=== PATIENT | female | born 1975 | race Hispanic/Latino ===

== ENCOUNTER → 2017-04-09 | Outpatient (CLI) | payer SELFPAY ==
[~2017-04-09] MED LIST: CALC-866 PO; DOXY100T19 PO; FOLI1TAB15 PO; IRON1CAP30 PO; LIOT5TAB8 PO; LISI1TAB9 PO; MEDR10TA PO; METR500T4 PO; OMEG1CAP83 PO; ZONI25CA PO; [UNRECOGNIZED DRUG - CODE] PO
== END | disposition home or self-care (01) ==
LOC: OIH 10:14
PROVIDERS: ATTEND Family Medicine
DX: Z13.6 Encounter for screening for cardiovascular disorders (principal)
CPT/HCPCS: 75571

== ENCOUNTER 2017-07-29 06:45 | Day surgery (SDC) | payer BC ==
[2017-07-26 10:38] VITALS: BP 125/56
[2017-07-26 10:47] LABS: BASOPHILS % (AUTO) 0.2 % (0.0-5.0); EOSINOPHILS % (AUTO) 2.5 % (0.0-8.0); HEMATOCRIT 42.4 % (36-48); LYMPHOCYTES % (AUTO) 25.6 % (21.0-51.0); MEAN CORPUSCULAR HEMOGLOBIN 26.8 pg (27.0-33.0); MEAN CORPUSCULAR HGB CONC 33.5 g/dL (32.0-36.0); MEAN CORPUSCULAR VOLUME 79.9 fL (79-99); MONOCYTES % (AUTO) 10.4 % (3.0-13.0); NEUTROPHILS % (AUTO) 61.3 % (40.0-77.0); PLATELET COUNT (AUTO) 220 K/uL (130-400); RED CELL DISTRIBUTION WIDTH 17.1 % (11.0-15.5); WHITE BLOOD COUNT (AUTO) 6.5 K/uL (4.8-10.8)
[2017-07-26 10:52] LABS: APPEARANCE,URINE Cloudy (CLEAR); BILIRUBIN,URINE Negative (NEGATIVE); COLOR,URINE Yellow (YELLOW); GLUCOSE, URINE (UA) Negative (NEGATIVE); KETONES,URINE Negative (NEGATIVE); LEUKOCYTE ESTERASE ,URINE Negative (NEGATIVE); NITRATE,URINE Negative (NEGATIVE); OCCULT BLOOD,URINE Moderate (NEGATIVE); PROTEIN,URINE Negative (NEGATIVE); UROBILINOGEN,URINE 0.2 mg/dL (0.2-1.0)
[2017-07-26 10:56] LABS: CREATININE 0.9 mg/dL (0.5-1.5); POTASSIUM 3.9 mmol/L (3.5-5.1)
[2017-07-26 11:00] LABS: INR 1.05 (0.85-1.15)
[2017-07-26 11:10] LABS: BACTERIA,URINE Rare /HPF (None Seen); RBC,URINE 26-50 /HPF (0-1); SQUAMOUS EPITHELIAL CELL,UR 0-2 /HPF (0-2); WBC,URINE 0-1 /HPF (0-1)
[~2017-07-29] VITALS: Ht 165.1 cm; Wt 117.4 kg
[2017-07-29] VITALS (15 sets, daily range): BP systolic 100–135; BP diastolic 45–74
[2017-07-29] MEDS: GENTAMICIN 80 MG/NS 100 ML PB 100 ML IV SCH ×2 (06:00→09:35)
[2017-07-29] MEDS: CEFAZOLIN SODIUM 1 GM VIAL IVP SCH ×2 (06:00→09:32)
[2017-07-29] MEDS ORDERED: LACTATED RINGERS 1000ML 1,000 ML IV ONE (07:28)
[2017-07-29] MEDS ORDERED: GENTAMICIN SULFATE 80 MG/2 ML VIAL ONE (07:30)
[2017-07-29] MEDS ORDERED: SUCCINYLCHOLINE 200MG/10ML SYR ONE (09:09)
[2017-07-29] MEDS ORDERED: GLYCOPYRROLATE 0.2 MG/ML 5 ML VIAL ONE (09:09)
[2017-07-29] MEDS ORDERED: MIDAZOLAM HCL 1 MG/ML 2ML VIAL ONE (09:09)
[2017-07-29] MEDS ORDERED: NEOSTIGMINE 5MG/5ML SYR IV ONE (09:09)
[2017-07-29] MEDS ORDERED: LIDOCAINE PF 2% 5ML ABBOJECT ONE (09:09)
[2017-07-29] MEDS ORDERED: PROPOFOL 10 MG/ML 20ML VIAL IV ONE (09:09)
[2017-07-29] MEDS ORDERED: DEXAMETHASONE SOD PHOSPHATE 10MG/ML 1ML VIAL ONE (09:09)
[2017-07-29] MEDS ORDERED: FENTANYL CITRATE PF 50 MCG/1 ML 2ML VIAL ONE ×4 (09:10→12:12)
[2017-07-29] MEDS ORDERED: LIDOCAINE HCL/EPINEPHRINE 50 ML VIAL IJ ONE (09:26)
[2017-07-29] MEDS ORDERED: METHYLENE BLUE 10 MG/ML AMP IJ ONE (09:26)
[2017-07-29] MEDS ORDERED: CEFAZOLIN SODIUM 1 GM VIAL ONE (10:48)
[2017-07-29] MEDS ORDERED: SULFANILAMIDE 120 GM TUBE VG ONE (12:40)
[2017-07-29] MEDS ORDERED: MEPERIDINE-PF 25 MG/ML SYG ONE (13:29)
[2017-07-29] MEDS ORDERED: ONDANSETRON HCL 4 MG/2 ML VIAL ONE (13:57)
[2017-07-29] MEDS ORDERED: METOCLOPRAMIDE 10 MG/2 ML VIAL ONE (13:57)
== END 2017-07-29 14:50 | disposition home or self-care (01) ==
LOC: DAH 06:45
PROVIDERS: ATTEND Urology
DX: N36.1 Urethral diverticulum (principal); I10 Essential (primary) hypertension; E03.9 Hypothyroidism, unspecified; Z98.890 Other specified postprocedural states; E66.01 Morbid (severe) obesity due to excess calories; Z98.84 Bariatric surgery status; N83.209 Unspecified ovarian cyst, unspecified side; I82.90 Acute embolism and thrombosis of unspecified vein; I26.99 Other pulmonary embolism without acute cor pulmonale; Z79.01 Long term (current) use of anticoagulants; R30.0 Dysuria
CPT/HCPCS: 36415; 53230; 80048; 81001; 84703; 85025; 85610; 87088; 88305; A4218; A4344; A4358; A4600; A4930; J0330; J0690 ×2; J1100; J1580; J2001; J2175; J2250; J2405; J2704; J2710; J2765; J3010 ×4; J3490; J7030; J7120 ×2; Q9968

== ENCOUNTER → 2018-03-01 | Outpatient (CLI) | payer BC ==
[~2018-03-01] MED LIST changes: -DOXY100T19 PO; -MEDR10TA PO; -METR500T4 PO
== END | disposition home or self-care (01) ==
LOC: RAH 10:00
PROVIDERS: ATTEND Family Medicine
DX: E04.2 Nontoxic multinodular goiter (principal)
CPT/HCPCS: 76536